=== PATIENT | female | born 1975 | race Caucasian/White ===

== ENCOUNTER 2023-12-18 07:45 | Inpatient (IN) | payer BC ==
[~2023-12-18] VITALS: Ht 162.6 cm; Wt 131.6 kg
[~2023-12-18 07:45] MED LIST: ALPR.5 PO; BCPs; FAMO20 PO; MAXIDE; PARO20 PO; PRED10 PO
[2023-12-18 08:30] LABS: BASOPHILS ABSOLUTE AUTO 0.07 K/mm3 (0.00-0.23); BASOPHILS PERCENT AUTO 1 % (0-2); EOSINOPHILS ABSOLUTE AUTO 0.14 K/mm3 (0.00-0.68); EOSINOPHILS PERCENT AUTO 1 % (0-6); Hematocrit 30.3 % (33.0-51.0); IMMATURE GRAN ABSOLUTE AUTO 0.07 K/mm3 (0.00-0.10); IMMATURE GRAN PERCENT AUTO 1 % (0-1); LYMPHOCYTES ABSOLUTE AUTO 1.14 K/mm3 (0.84-5.20); LYMPHOCYTES PERCENT AUTO 8 % (21-46); MONOCYTES ABSOLUTE AUTO 1.12 K/mm3 (0.16-1.47); MONOCYTES PERCENT AUTO 8 % (4-13); Mean Corpuscular HGB 29.7 pg (26.0-34.0); Mean Corpuscular Volume 90 fL (80-100); NEUTROPHILS ABSOLUTE AUTO 12.45 K/mm3 (1.96-9.15); NEUTROPHILS PERCENT AUTO 83 % (41-73); NRBC ABSOLUTE 0.02 K/mm3 (0.00-0.02); NRBC Auto 0.1 /100 WBC (0.0-0.2); Platelet Count 371 K/mm3 (150-400); RDW Coefficient Variation 13.7 % (11.7-14.2); Red Blood Cell Count 3.37 M/mm3 (3.80-5.20); White Blood Cell Count 14.99 K/mm3 (4.00-11.30)
[2023-12-18] MEDS ORDERED: CefTRIAXone Sodium 1,000 MG in NS 50 ML IV ONE (08:30)
[2023-12-18 08:49] LABS: Albumin, Blood 2.7 g/dL (3.4-5.0); Albumin/Globulin Ratio 0.6 (0.8-1.8); Bilirubin, Total 1.1 mg/dL (0.1-1.0); Bun/Creatinine Ratio 12.2 (12.0-20.0); Calcium, Blood 8.9 mg/dL (8.5-10.1); Creatinine, Blood 0.57 mg/dL (0.40-1.00); Globulin, Blood 4.7 g/dL (2.2-4.0); Potassium, Blood 3.1 mmol/L (3.5-5.5); Total Protein, Blood 7.4 g/dL (6.4-8.2)
[2023-12-18] MEDS ORDERED: NS 50 ML IV ONE (08:58)
[2023-12-18] MEDS ORDERED: CefTRIAXone 1000 MG Vial ONE (08:59)
[2023-12-18 09:31] LABS: Influenza A, PCR NEGATIVE (NEGATIVE); Influenza B, PCR NEGATIVE (NEGATIVE); Resp Syncytial Virus, PCR NEGATIVE (NEGATIVE); SARS-Cov-2 (COVID-19) PCR, MMC NEGATIVE (NEGATIVE)
[2023-12-18] MEDS ORDERED: Potassium Chloride 20 MEQ TabCR PO ONE (10:05)
[2023-12-18] MEDS ORDERED: Ondansetron HCl 2 MG / ML 2ML Vial IV PRN (10:30)
[2023-12-18] MEDS ORDERED: Acetaminophen 325 MG TABLET PO PRN (10:35)
[2023-12-18] MEDS ORDERED: NS 1,000 ML IV SCH ×2 (10:35)
[2023-12-18] MEDS ORDERED: Azithromycin 500 MG in NS 250 ML IV SCH (10:38)
[2023-12-18] MEDS ORDERED: Lisinopril 20 MG Tab PO SCH (12:00)
[2023-12-18] MEDS ORDERED: Metoprolol Tartrate 25 MG Tab PO SCH (12:00)
[2023-12-18] MEDS ORDERED: Furosemide 10 MG/ML 4ML Vial IV SCH (12:00)
[2023-12-18 12:10] VITALS: BP 157/93
[2023-12-18] MEDS ORDERED: LISINOPRIL-HCT1 EAC1 PO (12:15)
[2023-12-18] MEDS ORDERED: METFORMIN HCL500 M3 PO (12:16)
[2023-12-18] MEDS ORDERED: METO50ER PO (12:17)
[2023-12-18] MEDS ORDERED: MASOPHEN500 MG PO (12:19)
[2023-12-18] MEDS ORDERED: IBUP800 PO (12:19)
[2023-12-18] MEDS ORDERED: Ipratropium/Albuterol SulF 2.5-0.5MG/3 ML Amp INH PRN (12:55)
[2023-12-18] MEDS ORDERED: Metoprolol Succinate 50 MG TABCR PO SCH (12:55)
[2023-12-18 15:20] VITALS: BP 152/97
--- NOTE | 2023-12-18 16:08 | NUR ---
MAXIME RT SETTING UP ARIVO ON THE PT AT THIS TIME. THE PT CAN NOT SUSTAIN HER SATURATION >90%. ANY MOVEMENT, TALKING, OR COUGHING IS CAUSING THE PT'S SATURATION TO DROP IN THE 70'S-80'S ON 12L HFNC. SHE TAKES A LITTLE TO RECOVER. HER CURRENT AIRVO SETTINGS ARE 50L 64% SP02 93%.
[2023-12-18] MEDS ORDERED: Insulin Human Lispro 100 Units/ML 3ML Syringe SC SCH (16:30)
--- NOTE | 2023-12-18 17:29 | NUR ---
SHIFT SUMMARY PT WAS A NEW ADMIT TODAY THIS AFTERNOON. SHE ARRIVED TO PCU 13 ON 11 HFNC. SHE WAS SATURATING IN THE 70'S AFTER AMBULATING TO THE BATHROOM. PT TURNED UP TO 12L HFN W/ DEEP BREATHING COACHING. THE PT WAS ABLE TO RECOVER AFTER A FEW MINUTES. SHE WAS NOT ABLE TO SUSTAIN HER SP02 >90%. SHE WAS SWITCHED TO THE AIRVO 50L @ 63%. DR. SIGALA WAS CONSULTED. A CHEST CT WAS DONE. THE PT RESP HAVE BEEN 20'S-30'S. THE PT IS A&OX4, AND BED REST TO DUE FRAILITY OF LUNGS AND INCREASED OXYGEN DEMAND. SHE DID HAVE A HEADACHE TODAY AND WAS MEDICATED PER EMAR. THE PT HAS A PURWICK SET UP TO LIS. ON TELE SHE IS SR. BP HYPERTENSIVE, HOME BP MEDICATIONS RESTARTED. THE PT IS DIAPHERETIC BUT IS NOT RUNNING A FEVER AT THIS TIME. HER LIFE PARTNER WAS AT BEDSIDE AND WAS UPDATED ON CARE. SEE NOTES FOR UPDATES.
[2023-12-18 18:16] LABS: Adenovirus Not Detected (NOT DETECT); Coronavirus 229E Not Detected (NOT DETECT); Coronavirus HKU1 Not Detected (NOT DETECT); Coronavirus NL63 Not Detected (NOT DETECT); Coronavirus OC43 Not Detected (NOT DETECT); Human Metapneumovirus Not Detected (NOT DETECT); Human Rhinovirus/Enterovirus Not Detected (NOT DETECT); Influenza A/H1 Not Detected (NOT DETECT); SARS-Cov-2 (COVID-19), BioFire Not Detected (NOT DETECT)
[2023-12-18 18:17] LABS: Bordetella pertussis Not Detected (NOT DETECT); Chlamydophila pneumoniae Not Detected (NOT DETECT); Influenza A/2009-H1 Not Detected (NOT DETECT); Influenza A/H3 Not Detected (NOT DETECT); Influenza B Not Detected (NOT DETECT); Mycoplasma pneumoniae Not Detected (NOT DETECT); Parainfluenza Virus 1 Not Detected (NOT DETECT); Parainfluenza Virus 2 Not Detected (NOT DETECT); Parainfluenza Virus 3 Not Detected (NOT DETECT); Parainfluenza Virus 4 Not Detected (NOT DETECT); Respiratory Syncytial Virus Not Detected (NOT DETECT)
[2023-12-18 19:51] LABS: C-REACTIVE PROTEIN, EXT RANGE >19.000 mg/dL (0.000-0.300); Lactate Dehydrogenase (Ld),Bld 479 U/L (100-240)
[2023-12-18 20:26] VITALS: BP 174/96
[2023-12-18] MEDS ORDERED: Docusate Sodium 100 MG Cap PO SCH (21:00)
[2023-12-18] MEDS ORDERED: Doxycycline Hyclate 100 MG TAB PO SCH (21:00)
[2023-12-18] MEDS ORDERED: Lactobacil 2-S.Thermo-Bifido 1 1 Cap PO SCH (21:00)
[2023-12-18] MEDS ORDERED: Famotidine 20 MG Tab PO SCH (21:00)
[2023-12-18] MEDS ORDERED: GuaiFENesin 600 MG TabCR PO SCH (21:00)
[2023-12-18 22:21] LABS: Source, Urine Clean Catch
[2023-12-18 22:23] LABS: Blood, Urine 1+ (Neg); Glucose Qualitative, Urine Neg (Neg); Ketones, Urine 1+ (Neg); Leukocyte Esterase, Urine 1+ (Neg); Nitrite, Urine Neg (Neg); Protein, Urine 3+ (Neg); Specific Gravity, Urine 1.015 (1.003-1.022); Urobilinogen, Urine 4+ (Normal)
[2023-12-18 22:29] LABS: Appearance, Urine Hazy (Clear); Bilirubin, Urine 1+ (Neg); Color, Urine Yellow (P-Yellow)
[2023-12-18 22:30] LABS: Amorphous Mod (0-Heavy); Bacteria Few /hpf; Red Blood Cells, Urine 0-2 /hpf (0-2); Squamous Epithelial Cells Few /hpf (Few); White Blood Cells, Urine 0-2 /hpf (0-5)
[2023-12-19 00:09] VITALS: BP 151/71
[2023-12-19 03:54] LABS: BASOPHILS ABSOLUTE AUTO 0.09 K/mm3 (0.00-0.23); BASOPHILS PERCENT AUTO 1 % (0-2); EOSINOPHILS ABSOLUTE AUTO 0.36 K/mm3 (0.00-0.68); EOSINOPHILS PERCENT AUTO 2 % (0-6); Hemoglobin 9.4 g/dL (11.5-16.0); IMMATURE GRAN ABSOLUTE AUTO 0.06 K/mm3 (0.00-0.10); IMMATURE GRAN PERCENT AUTO 0 % (0-1); LYMPHOCYTES ABSOLUTE AUTO 1.25 K/mm3 (0.84-5.20); LYMPHOCYTES PERCENT AUTO 8 % (21-46); MONOCYTES ABSOLUTE AUTO 1.31 K/mm3 (0.16-1.47); MONOCYTES PERCENT AUTO 9 % (4-13); Mean Corpuscular HGB 29.3 pg (26.0-34.0); Mean Corpuscular HGB Conc 32.4 g/dL (31.5-36.5); Mean Corpuscular Volume 90 fL (80-100); Mean Platelet Volume 9.8 fL (9.1-12.4); NEUTROPHILS ABSOLUTE AUTO 11.76 K/mm3 (1.96-9.15); NEUTROPHILS PERCENT AUTO 79 % (41-73); NRBC ABSOLUTE 0.02 K/mm3 (0.00-0.02); NRBC Auto 0.1 /100 WBC (0.0-0.2); Platelet Count 395 K/mm3 (150-400); RDW Coefficient Variation 13.5 % (11.7-14.2); RDW Standard Deviation 45.3 fL (35.1-46.3); Red Blood Cell Count 3.21 M/mm3 (3.80-5.20); White Blood Cell Count 14.83 K/mm3 (4.00-11.30)
[2023-12-19 04:13] LABS: Albumin, Blood 2.4 g/dL (3.4-5.0); Albumin/Globulin Ratio 0.5 (0.8-1.8); Bun/Creatinine Ratio 16.6 (12.0-20.0); Calcium, Blood 8.8 mg/dL (8.5-10.1); Creatinine, Blood 0.6 mg/dL (0.40-1.00); Globulin, Blood 4.7 g/dL (2.2-4.0); Potassium, Blood 3.8 mmol/L (3.5-5.5); Total Protein, Blood 7.1 g/dL (6.4-8.2)
[2023-12-19 04:15] VITALS: BP 132/76
--- NOTE | 2023-12-19 05:46 | NUR ---
PT HAD A COUGHING EPISODE AND WAS UNABLE TO MAINTAIN O2 SATS, DESATED TO 79%. PT REPOSITIONED AND ENCOURAGED TO FOCUS ON BREATHING IN THROUGH NOSE OUT THROUGH MOUTH. SATS STILL REMAINED BETWEEN 83-84%. RESPIRATORY THERAPY CALLED. NON-REBREATHER PLACED AT 15L IN ADDITION TO THE HEATED HIGH FLOW NASAL CANNULA PER RESPIRATORY THERAPY INSTRUCTION. SATS DID IMPROVED BACK TO 88-90%. REASSESSMENT OF LUNG SOUNDS RLL HAS NEW FINE CRACKLES, LLL ESSENTIALLY UNCHANGED FROM CLEAR AND DIMINISHED. NO C/O OF CP. PT REMAINS AOX4.
--- NOTE | 2023-12-19 06:04 | NUR ---
DR. REYNOLDS CALLED AND INFORMED OF PT DESAT AND CURRENT INCREASED OXYGEN DEMAND.
--- NOTE | 2023-12-19 06:28 | NUR ---
PT HAS REQUIRED INCREASED O2 THROUGHOUT THE SHIFT. PT HAD A COUGHING EPISODE AND O2 DROPPED INTO THE 70S. PT HAS BEEN DESATING WITH ANY AND ALL EXERTION PRIOR TO THIS. CURRENTLY 50L 82% FIO2 WITH 15L NON REBREATHER MASK SUPPORT. PT IS NO SATING BETWEEN 90-92%. PHYSICIAN MADE AWARE OF DESAT AND INCREASED DEMAND. OTHER VITAL SIGNS HAVE REMAINED STABLE. PT REMAINS AOX4, NO C/O CHEST PAIN. NEW FINE CRACKLES NOTED ON RLL. WILL ATTEMPT TO REMOVE NON-REBREATHER WHEN O2 SATS STABILIZE.
[2023-12-19 07:37] VITALS: BP 147/77
[2023-12-19] MEDS ORDERED: Lactobacil 2-S.Thermo-Bifido 1 1 Cap PO SCH (08:00)
[2023-12-19] MEDS ORDERED: NS 100 ML IV ONE (08:09)
[2023-12-19] MEDS ORDERED: CefTRIAXone 1000 MG Vial ONE (08:09)
[2023-12-19] MEDS ORDERED: Lisinopril 20 MG Tab PO SCH (09:00)
[2023-12-19] MEDS ORDERED: Enoxaparin 40 MG/0.4 ML SYR SC SCH (09:00)
[2023-12-19] MEDS ORDERED: HydroCHLOROthiazide 25 mg Tab PO SCH (09:00)
[2023-12-19] MEDS ORDERED: PARoxetine HCl 20 MG Tab PO SCH (09:00)
[2023-12-19] MEDS ORDERED: CefTRIAXone Sodium 1,000 MG in NS 100 ML IV SCH (09:00)
--- NOTE | 2023-12-19 11:06 | NUR ---
AM NOTES; PT WAS ON AIRVO AT THE BEGINNING OF THE SHIFT SETTINGS 60L 83% FIO2 WIHT NON REBREATHER ON TOP 15L. PT DESATS WITH MINIMAL ACTIVITY TO LOW 80'S EVEN WITH BOTH O2 SUPPORT. PT WAS SWITCHED TO CPAP 12 70% FIO2, PT TOLRATING WELL AT THIS TIME. KEPT SATS ABOVE 90%, HRR REMAINED SR 70', SBP 140'S, AFEBRILE. PT TRIED TO EAT BREAKFAST THIS MORNING ABLY TO ONLY DRINK FLUIDS AND TAKE A BITE OF BANANA. PT HAS PUREWICK IN PLACE DRAINING DARK YELLOW URINE AND HAS SOME SEDIMENTS ON THE BOTTOM. PT RESTING AT THIS TIME PT REMAINED ALERT AND ORIENTED X4, ABLE TO MAKE NEEDS KNOWN WILL CONTINUE TO MONITOR
[2023-12-19 11:29] VITALS: BP 114/66
[2023-12-19 15:14] VITALS: BP 135/74
--- NOTE | 2023-12-19 17:47 | NUR ---
PT SUMMARY; PT REMAINS ON CPAP SETTINGS NOW ON 12 65% FIO2, PT SWITCHING TO AIRVO WITH SETTINGS 60L 83% FIO2 WITH MEALS, PT CONTINUES TO DESAT WITH EXERTION. DENTAL HYGIENIST ABLE TO SEE PT TODAY WITH DENTIST REFERRAL. PT REPORTED HEAD ACHE AND KNEE PAIN MEDICATED TWICE WITH TYLENOL FOR THE SHIFT THE REST OF THE VITALS ARE STABLE. PUREWICK IN PLACE. PT HAS BEEN CALLING APPROPRIATELY ABLE TO MAKE NEEDS KNOWN, WILL REPORT TO ONCOMING SHIFT
[2023-12-19 20:21] VITALS: BP 111/56
--- NOTE | 2023-12-19 22:07 | NUR ---
PT SLEEPING WITH CPAP ON HAVING INCREASED RESP RATE 44. RESPIRATIONS SHALLOW. O2 SATS 87% AND HOLDING. NO LEAK ON THE MACHINE NOTED. WOKE PT UP AND SATS DID IMPROVE TO 92%. CALLED RT TO SEE IF THERE WERE ANY SETTINGS WE COULD ADJUST FOR HER WHILE SHES SLEEPING AND WAS INFORMED NOTHING ELSE TO BE DONE AT THIS TIME. WILL CONTINUE TO MONITOR PT AND WAKE NECESSARY IN RESPONSE TO LOW O2 SATS.
[2023-12-20] VITALS (7 sets, daily range): BP systolic 120–144; BP diastolic 59–73
--- NOTE | 2023-12-20 01:02 | NUR ---
PT REMOVED FROM CPAP AND PLACED BACK ON AIRVO 50L 78% SATING AT 94%. PT REMOVED FOR ORAL MEDICATIONS. PT TOLERATING WELL. VS STABLE EXCEPT PT HAS TEMP 101.4. PT WAS MEDICATED FOR KNEE/BACK PAIN WITH TYLENOL.
--- NOTE | 2023-12-20 01:54 | NUR ---
PT BACK TO CPAP FROM AIRVO. PT PAIN AND TEMP IMPROVED AFTER MEDICATION. CPAP 14 CM H20 AND 70%. PT SATING 93% RR 36 AT THIS TIME. PT DENIES ANXIETY.
--- NOTE | 2023-12-20 02:43 | NUR ---
PT NOW ABLE TO REST AND IS SLEEPING ON CPAP. RR IS 26, SPO2 98%, HR 65.
--- NOTE | 2023-12-20 06:43 | NUR ---
PT BREATHING IMPROVED ON CPAP OVERNIGHT. PT WAS ABLE TO GET OOB TO BSC TO URINATE AND O2 SATS REMAINED STABLE AT 96%. PT WAS ABLE TO SLEEP ON CPAP WELL. PUREWICK REMOVED AND LINEN CHANGE DONE. PT DID HAVE AN ELEVATED TEMP AND THAT HAS IMPROVED. LUNG SOUNDS IMPROVED.
[2023-12-20] MEDS ORDERED: PredniSONE 20 MG Tab PO ONE (08:00)
--- NOTE | 2023-12-20 18:26 | NUR ---
SHIFT SUMMARY A&Ox4, CALLS AND COMMUNICATES NEEDS APPROPRIATELY. BP STABLE, SINUS 80'S, DENIES CP/PRESSURE. SpO2 90% 40L 45% FiO2 VIA AIRVO, REPORTS INTERMITTENT SOB. 1 ASSIST TO BSC, CONTINENT OF URINE, NO BM THIS SHIFT. NO C/O PAIN. NO OTHER EVENTS, WILL REPORT TO ONCOMING RN.
[2023-12-20 22:18] LABS: ANTI-NUCLEAR AB ANA,IGG ELISA None Detected (None Detected)
[2023-12-20 22:28] LABS: CYCLIC CITRULLINATED PEP,IGG/A 3 Units (0-19)
--- NOTE | 2023-12-20 22:33 | NUR ---
PT MEDICATED FOR HEADACHE, SEE MAR.
[2023-12-21 04:02] LABS: SCLERODERMA (SCL-70) AB,IGG 0 AU/mL (0-40); SSA-52 (RO52) (ENA) AB, IGG 2 AU/mL (0-40); SSA-60 (RO60) (ENA) AB, IGG 0 AU/mL (0-40); SSB (LA) (ENA) ANTIBODY, IGG 0 AU/mL (0-40)
[2023-12-21 04:14] VITALS: BP 124/65
[2023-12-21 04:33] LABS: BASOPHILS ABSOLUTE AUTO 0.06 K/mm3 (0.00-0.23); BASOPHILS PERCENT AUTO 0 % (0-2); EOSINOPHILS ABSOLUTE AUTO 0.12 K/mm3 (0.00-0.68); EOSINOPHILS PERCENT AUTO 1 % (0-6); Hematocrit 29.8 % (33.0-51.0); Hemoglobin 9.6 g/dL (11.5-16.0); IMMATURE GRAN ABSOLUTE AUTO 0.08 K/mm3 (0.00-0.10); IMMATURE GRAN PERCENT AUTO 1 % (0-1); LYMPHOCYTES ABSOLUTE AUTO 2.72 K/mm3 (0.84-5.20); LYMPHOCYTES PERCENT AUTO 18 % (21-46); MONOCYTES PERCENT AUTO 9 % (4-13); Mean Corpuscular HGB 28.8 pg (26.0-34.0); Mean Corpuscular HGB Conc 32.2 g/dL (31.5-36.5); Mean Corpuscular Volume 90 fL (80-100); Mean Platelet Volume 9.7 fL (9.1-12.4); NEUTROPHILS PERCENT AUTO 71 % (41-73); Platelet Count 512 K/mm3 (150-400); RDW Coefficient Variation 13.3 % (11.7-14.2); RDW Standard Deviation 43.7 fL (35.1-46.3); Red Blood Cell Count 3.33 M/mm3 (3.80-5.20); White Blood Cell Count 14.88 K/mm3 (4.00-11.30)
[2023-12-21 05:08] LABS: Bun/Creatinine Ratio 27.5 (12.0-20.0); Calcium, Blood 9.5 mg/dL (8.5-10.1); Creatinine, Blood 0.69 mg/dL (0.40-1.00); Potassium, Blood 3.7 mmol/L (3.5-5.5)
--- NOTE | 2023-12-21 06:50 | NUR ---
PT REMAINED STABLE THOUGHOUT THE SHIFT BUT DID DESAT ON THE AIRVO TO 84% WHILE SLEEPING AND WAS PLACED ON CPAP WITH IMMEDIATE IMPROVEMENT OF SPO2 TO 99-100%. PT WAS ABLE TO SLEEP FOR 3.5HRS ON CPAP. PT DID HAVE A LARGE BM. NO SPUTUM SAMPLE COLLECTED FOR PENDING TEST PT WAS UNABLE TO PRODUCE AND DID NOT HAVE ANY PROLONGED EPISODES OF COUGHING. PT IS MAINTAINING O2 SATS BETTER ON AIRVO WITH MOVEMENT/TALKING/EATING/DRINKING WITH SATS BETWEEN 93-96%.
[2023-12-21 07:53] VITALS: BP 122/55
--- NOTE | 2023-12-21 10:30 | NUR ---
DR. RAINEY AT THE BEDSIDE AND NOTIFIED OF PROLONGED QTC OF 0.50 AFTER CONSULTING WITH PHARMACY, IT WAS DETERMINED THAT THE AZITHROMYCIN AND IMMODIUM CAN CAUSE PROLONGED QTC. DR. RAINEY D/C'D THE TWO MEDICATIONS AND STATED HE WILL START HER ON A DIFFERENT ANTIBIOTIC AT DISCHARGE. PLAN FOR DISCHARGE TODAY.
[2023-12-21] MEDS ORDERED: PredniSONE 20 MG Tab PO SCH (11:00)
[2023-12-21 11:19] VITALS: BP 123/108
[2023-12-21 12:48] LABS: GBM, IGG MULTIPLEX BEAD ASSAY 0 AU/mL (0-19)
[2023-12-21 12:49] LABS: MYELOPEROXIDASE (MPO) AB,IGG 1 AU/mL (0-19); SERINE PROTEINASE 3 PR3 AB,IGG 0 AU/mL (0-19)
--- NOTE | 2023-12-21 13:14 | NUR ---
AMBULATION AND OXYGEN TRIAL. I AMBULATED THE PT TO THE BATHROOM ON 2L NC. AFTER ABOUT THREE MINUTES THE PT DESATURATED TO A LOW OF 70%. THE PT REPORTING DIZZINESS AT THIS TIME. I TURNED HER OXYGEN UP TO 4L NC AND AFTER SHE RECOVERED SHE FELT LIKE WALKING. I ASSISTED THE PT WITH AMBULATING TO THE NURSES STATION AND BACK ON 4L NC AND THE LOWEST HER SP02 DROPPED WAS 89%. SHE DID STOP ABOUT HALF WAY BECAUSE SHE FELT "WEAK" BUT SHE DENIES SOB OR FEELING LIGHT HEADED. THE INFORMATION WAS RELAYED TO MAXIME HARDEN. SEE NOTES FOR UPDATES.
[2023-12-21 15:25] VITALS: BP 105/58
--- NOTE | 2023-12-21 17:08 | NUR ---
SHIFT SUMMARY THE PT IS A&OX4, CALLS APPROPRIATELY, AND MAKES HER NEEDS KNOWN. SHE WAS TITRAITED DOWN ON HER OXYGEN WHILE AWAKE. AT THIS TIME THE PT NEEDS 2L NC AT REST AND 4LNC WITH ACTIVITY ANDAMBULATION. SEE PREVIOUS NOTE FOR MORE DETAILS. ON TELE THE PT IS SB/SR 50'S-60'S. BP SOFT BUT STABLE. SHE DENIES ANY ANGINA, PAIN, HEADACHE, AND DIZZINESS AT THIS TIME. FAMILY WAS AT THE BEDSIDE AND UPDATED ON CARE. SEE NOTES FOR ANY UPDATES.
[2023-12-21 20:13] VITALS: BP 129/57
--- NOTE | 2023-12-21 21:05 | NUR ---
VSS. DENIES CHEST PAIN. ALERT AND ORIENTED X 4. AGREES TO USE CALL LIGHT IF NEED OOB. CALL LIGHT IN REACH. O2 AT 2L/MIN PER NC. IF OOB 4L/NC
[2023-12-22 00:24] VITALS: BP 145/60
--- NOTE | 2023-12-22 02:13 | NUR ---
O2 SATS DROPPING INTO THE LOW 80'S. PT ASYMPTOMATIC. O2 INCREASED TO 4L/MIN PER NC. ENCOURAGED TO TAKE DEEP BREATHS. CALL [facility] IN REACH.
--- NOTE | 2023-12-22 03:19 | NUR ---
UTILITY OPERATOR SUMMARY VSS. RECEIVING PO ANTIBITICS FOR SEPSIS- SEE MAR. ON O2 AT 2L/MIN PER NC WHEN IN BED AND 4L/MIN WHEN UP AND ABOUT - TO BR, ETC. HOLDING OFF OF CPAP FOR AIR EVAL IN THE AM. HAS BEEN RESTING AT INTERVALS, WHEN UP TO BATHROOM EARLIER, SEEMED OK, BUT WHEN BACK TO BED, DROPPED IN O2 SATS AND O2 WAS INCREASED TO 4L/MIN. EFFECTIVE, O2 SATS IN THE 90'S. HR TRENDING IN THE HIGH 50'S AND LOW 60'S. DENIED CHEST PAIN THROUGHOUT SHIFT. UP WITH OBSERVATION FOR SAFETY TO PREVENT FALLS. ABLE TO REPOSITION SELF IN BED WITHOUT ASSIST, BED IN LOW POSITION, RAILS UP X 2 AND CALL LIGHT IN REACH FOR SAFETY. WILL CONT TO MONITOR.
[2023-12-22 04:03] VITALS: BP 137/67
[2023-12-22 04:09] LABS: Base Excess Venous 3.2 mmol/L; PCO2 Venous 38.8 mmHg (38-42); pH Blood Venous 7.45 (7.34-7.37)
[2023-12-22 08:33] VITALS: BP 133/83
[2023-12-22 09:26] LABS: Percent Saturation 11.1 % (15.0-50.0)
--- NOTE | 2023-12-22 09:50 | NUR ---
PT TITRATED TO RA AT ROUGHLY 0835. SATS STABLE IN THE 90'S WHILE AT REST. PT UP IN ROOM TO AMBULATE TO HER PERSONAL BELONGINGS ONTOP OF HER ROOM END TABLE. SATS DOWN TO 87% BUT PELTH WAS NOT GOOD. PT STOPPED AND TOOD IN DEEP BREATHS, SATS RETURNED TO LOW 90'S. PT REPORTED SLIGHT SOB AT THIS TIME. PT BACK TO RECLINER AND RESTING, SATS STABLE IN MID 90S ON RA.
[2023-12-22 11:57] VITALS: BP 148/95
[2023-12-22 16:51] VITALS: BP 151/78
--- NOTE | 2023-12-22 17:49 | NUR ---
SHIFT SUMMARY PT A/OX4 AND COOPERATIVE OF CARE. PT ABLE TO EXPRESS NEEDS AND CALLS APPROPIATE.PT INDEPENDENT IN ROOM. PT VSS THROUGHOUT SHIFT. PT TITRATED FROM 2L NC TO RA THIS MORNING, SATS REMAINED STABLE. PT AMBULATED AROUND ROOM AND PCU MULTIPLE TIMESDURING SHIFT, SATS WOULD BE DOWN TO 88% AT TIMES BUT WOULD RETUNR TO 90'S QUICKLY. OVERNIGHT O2 EVAL ORDERED. NO REPORT OF CHEST PAIN/PRESSURE THROUGHOUT SHIFT. PT DID REPORT MILD SOB WHEN AMBULATING.
[2023-12-22 19:46] VITALS: BP 159/85
[2023-12-23 03:52] VITALS: BP 150/79
--- NOTE | 2023-12-23 05:45 | NUR ---
SHIFT SUMMARY PT A&O X4, ABLE TO MAKE NEEDS KNOWN. VSS, AFEBRILE. SPO2 >93% RA. OVERNIGHT SLEEP OXIMETRY COMPLETED THIS SHIFT. PT AMBULATES IN ROOM INDEPENDENTLY. SHE DENIES CP OR PRESSURE AND ONLY REPORTS MILD SOB WITH EXERTION. SHE IS RESTING QUIETLY IN BED, CALL LIGHT WITHIN REACH, BREATHING EVEN AND UNLABORED.
[2023-12-23 08:10] VITALS: BP 135/73
[2023-12-23] MEDS ORDERED: Potassium Chloride 20 MEQ TabCR PO SCH (09:00)
[2023-12-23] MEDS ORDERED: Ferrous Sulfate 325 MG Tab PO SCH (09:00)
[2023-12-23] MEDS ORDERED: Furosemide 40 MG Tab PO SCH (09:00)
[2023-12-23] MEDS ORDERED: FERSU300 PO (10:33)
[2023-12-23] MEDS ORDERED: DOXY100 PO (10:33)
[2023-12-23] MEDS ORDERED: POTCHL20ER PO (10:34)
[2023-12-23] MEDS ORDERED: FURO40 PO (10:34)
[2023-12-23] MEDS ORDERED: LISI20 PO (10:34)
[2023-12-23] MEDS ORDERED: PRED20 PO (10:36)
[2023-12-23] MEDS ORDERED: VISBIOME 112.51 EACH PO (10:37)
[2023-12-23] MEDS ORDERED: ALBU90OI INH (10:59)
--- NOTE | 2023-12-23 13:55 | NUR ---
Discharge Summary Pt was discharged at 1130, prescriptions faxed to [facility] pharmacy. Discharge instructions given verbally and in print. Pt walked to the exit and waited outside for her partner to pick her up via automobile.
== END 2023-12-23 11:56 | disposition home or self-care (01) | DRG 193 ==
LOC: ER 07:45 → PCU 10:23
PROVIDERS: Emergency Medicine; Internal Medicine; Internal Medicine Critical Care Medicine; ADMIT Internal Medicine
PROC: 5A0935A Assistance with Respiratory Ventilation, Less than 24 Consecutive Hours, High Flow/Velocity Cannula (ICD-10-PCS; 2023-12-18)
PROC: 5A09357 Assistance with Respiratory Ventilation, Less than 24 Consecutive Hours, Continuous Positive Airway Pressure (ICD-10-PCS; principal; 2023-12-19)
DX: J18.9 Pneumonia, unspecified organism (principal); I50.31 Acute diastolic (congestive) heart failure; J96.01 Acute respiratory failure with hypoxia; J44.1 Chronic obstructive pulmonary disease with (acute) exacerbation; Z68.42 Body mass index [BMI] 45.0-49.9, adult; G47.33 Obstructive sleep apnea (adult) (pediatric); E66.01 Morbid (severe) obesity due to excess calories; E11.9 Type 2 diabetes mellitus without complications; F41.9 Anxiety disorder, unspecified; D50.9 Iron deficiency anemia, unspecified; Z98.890 Other specified postprocedural states; Z79.84 Long term (current) use of oral hypoglycemic drugs; Z79.811 Long term (current) use of aromatase inhibitors; Z79.02 Long term (current) use of antithrombotics/antiplatelets; Z79.899 Other long term (current) drug therapy; I11.0 Hypertensive heart disease with heart failure; Z99.81 Dependence on supplemental oxygen
CPT/HCPCS: 0202U; 0241U; 36415; 71045; 71250; 80048; 80053; 81001; 82728; 82803; 82947; 83516; 83540; 83550; 83605; 83615; 83880; 84145; 84484; 85025; 85651; 86038; 86140; 86200; 86235; 86430; 87040; 87070; 87205; 87449; 93005; 93010; 93306; 94640; 94660; 94664; 94760; 94761; 94762; 96365; 99285-25; A9270; J0696; J1650; J1940; J7512

== ENCOUNTER → 2024-07-31 | Outpatient (CLI) | payer OTHER ==
[~2024-07-31] MED LIST changes: +ACET500 PO; +ALBU90OI INH; +DOXY100 PO; +FERSU300 PO; +FURO40 PO; +IBUP800 PO; +LISI20 PO; +LISINOPRIL-HCT1 EAC1 PO; +MASOPHEN500 MG PO; +METFORMIN ER G500 MG PO; +METFORMIN HCL500 M3 PO; +METO50ER PO; +OXAYDO5 M1 PO; +POTCHL20ER PO; +PRED20 PO; +SIME80CH PO; +VISBIOME 112.51 EACH PO
[2024-07-31 15:42] LABS: Source, Urine Clean Catch
[2024-07-31 17:24] LABS: Appearance, Urine Clear (Clear); Bilirubin, Urine Neg (Neg); Blood, Urine Neg (Neg); Color, Urine Yellow (P-Yellow); Glucose Qualitative, Urine Neg (Neg); Ketones, Urine Neg (Neg); Leukocyte Esterase, Urine 1+ (Neg); Nitrite, Urine Neg (Neg); Protein, Urine 1+ (Neg); Specific Gravity, Urine 1.015 (1.003-1.022); Urobilinogen, Urine NORM (Normal)
[2024-07-31 17:35] LABS: Bacteria Mod /hpf; Red Blood Cells, Urine 0-2 /hpf (0-2); Squamous Epithelial Cells Few /hpf (Few)
[2024-07-31 19:05] LABS: BASOPHILS PERCENT AUTO 1 % (0-2); EOSINOPHILS ABSOLUTE AUTO 0.14 K/mm3 (0.00-0.68); EOSINOPHILS PERCENT AUTO 1 % (0-6); Hematocrit 36.1 % (33.0-51.0); Hemoglobin 11.6 g/dL (11.5-16.0); IMMATURE GRAN ABSOLUTE AUTO 0.04 K/mm3 (0.00-0.10); IMMATURE GRAN PERCENT AUTO 0 % (0-1); LYMPHOCYTES ABSOLUTE AUTO 2.81 K/mm3 (0.84-5.20); LYMPHOCYTES PERCENT AUTO 26 % (21-46); MONOCYTES ABSOLUTE AUTO 1.08 K/mm3 (0.16-1.47); MONOCYTES PERCENT AUTO 10 % (4-13); Mean Corpuscular HGB 30.8 pg (26.0-34.0); Mean Corpuscular HGB Conc 32.1 g/dL (31.5-36.5); Mean Corpuscular Volume 96 fL (80-100); Mean Platelet Volume 10.9 fL (9.1-12.4); NEUTROPHILS ABSOLUTE AUTO 6.64 K/mm3 (1.96-9.15); NEUTROPHILS PERCENT AUTO 61 % (41-73); Platelet Count 217 K/mm3 (150-400); RDW Coefficient Variation 13.2 % (11.7-14.2); Red Blood Cell Count 3.77 M/mm3 (3.80-5.20); White Blood Cell Count 10.81 K/mm3 (4.00-11.30)
[2024-08-10 11:56] LABS: HPV HIGH RISK BY TMA Not Detected; HPV SOURCE Cervical
== END ==
LOC: LAB 15:28 → LAB SHORT 15:28
PROVIDERS: Obstetrics & Gynecology
DX: Z01.818 Encounter for other preprocedural examination (principal)
CPT/HCPCS: 36415; 81001; 85025; 86850; 86900; 86901; 87086; 87624; G0123

== ENCOUNTER 2024-08-13 08:25 | Day surgery (SDC) | payer OTHER ==
[2024-08-13] VITALS (13 sets, daily range): BP systolic 104–155; BP diastolic 52–90
[~2024-08-13] VITALS: Ht 164 cm; Wt 135.4 kg
[~2024-08-13 08:25] MED LIST changes: -ACET500 PO; +CeFAZolin Sodium 3,000 MG in NS 100 ML IV SCH; +Lactated Ringer's 1,000 ML IV SCH; -OXAYDO5 M1 PO; -SIME80CH PO
[2024-08-13] MEDS ORDERED: Ondansetron HCl 2 MG / ML 2ML Vial ONE (08:33)
[2024-08-13] MEDS ORDERED: Rocuronium Bromide 10 MG/ML 5ML Injection IV ONE ×3 (08:33→10:06)
[2024-08-13] MEDS ORDERED: Ketorolac Tromethamine 30mg Vial ONE (08:33)
[2024-08-13] MEDS ORDERED: Bupivacaine 0.5% HCl 5 MG/ML 30MLVIAL ONE (08:33)
[2024-08-13] MEDS ORDERED: FentaNYL Citrate 50 MCG/ML 2 ML Injection ONE (08:33)
[2024-08-13] MEDS ORDERED: Dexamethasone Sod Phos 10 MG/ML 1ML VIAL ONE (08:33)
[2024-08-13] MEDS ORDERED: propofoL 20 ML IV ONE (08:33)
[2024-08-13] MEDS ORDERED: Sugammadex Sodium 200 MG/2ML SDV (100 MG/ML) ONE (08:33)
[2024-08-13] MEDS ORDERED: Scopolamine Hydrobromide Patch TOP SCH (08:45)
[2024-08-13] MEDS ORDERED: FentaNYL Citrate 50 MCG/ML 2 ML Injection IV PRN ×4 (08:45→12:20)
[2024-08-13] MEDS ORDERED: Ondansetron HCl 2 MG / ML 2ML Vial IV PRN ×2 (08:45→12:20)
[2024-08-13] MEDS ORDERED: Midazolam HCl 1MG / ML 2ML Vial IV PRN (08:45)
[2024-08-13] MEDS ORDERED: Lidocaine HCl 1% 5 ML SYR INJ ONE (08:50)
[2024-08-13] MEDS ORDERED: Metoclopramide HCl 5MG / ML 2ML Vial IV PRN (08:50)
[2024-08-13] MEDS ORDERED: Droperidol 5 mg/2 ml Vial IV PRN (08:50)
[2024-08-13] MEDS ORDERED: HYDROmorphone HCl/Pf 1MG SYR IV PRN (08:50)
--- NOTE | 2024-08-13 08:59 | NUR ---
History, Chart, Medications and Allergies reviewed before start of procedure. Pre-Op teaching done. Pt verbalizes understanding. Patient States Post-Procedure ride home has been arranged.
[2024-08-13] MEDS ORDERED: Dexmedetomidine HCL 200 MCG / 2 ML ONE (09:00)
[2024-08-13] MEDS ORDERED: Phenylephrine HCl 100 MCG/ML-NS 10MLSYR (1MG/10ML) ONE (09:41)
[2024-08-13] MEDS ORDERED: ePHEDrine Sulfate 50 MG/ML 1ML Injection ONE (09:41)
[2024-08-13] MEDS ORDERED: HYDROmorphone HCl/Pf 1MG SYR ONE (10:26)
[2024-08-13] MEDS ORDERED: DiphenhydrAMINE HCL 25 MG Cap PO PRN (12:20)
[2024-08-13] MEDS ORDERED: OxyCODONE HCL 5 MG TAB PO PRN ×2 (12:20→12:25)
[2024-08-13] MEDS ORDERED: Ketorolac Tromethamine 30mg Vial IV PRN (12:20)
[2024-08-13] MEDS ORDERED: Ibuprofen 400 MG Tab PO PRN (12:20)
[2024-08-13] MEDS ORDERED: Acetaminophen 500 MG Tab PO PRN (12:25)
[2024-08-13] MEDS ORDERED: Metoclopramide HCl 10 MG Tab PO PRN (12:25)
[2024-08-13] MEDS ORDERED: Simethicone 80 MG Chew PO PRN (12:25)
--- NOTE | 2024-08-13 12:51 | NUR ---
ARRIVAL TO UNIT AFTER RECEIVING REPORT FROM TARIFF COMPILING CLERK, PATIENT TRANSFERRED [facility] AT APPROX 1230. PATIENT ALERT AND ORIENTED X4. ABLE TO STAND AND TRANSFER FROM [facility] TO RESTROOM WITH SBA. X1 SMALL UNMEASURABLE VOID. S/P LAP HYSTER. VSS. ON ROOM AIR WHILE AWAKE - SATs >90%. LUNG SOUNDS CLEAR. DENIES SOB. X4 LAP SITES C/D/I WITH WOUND GLUE. MINIMAL VAGINAL BLEEDING ON JOSE PAD. DENIES N/V - SMALL SNACKS WITHIN REACH. IVF INFUSING TO GRAVITY. DENIES PAIN AT THIS TIME. CALL LIGHT IN REACH. SPOUSE AT BEDSIDE.
[2024-08-13] MEDS ORDERED: ACET500 PO (15:53)
[2024-08-13] MEDS ORDERED: OXAYDO5 M1 PO (15:54)
[2024-08-13] MEDS ORDERED: SIME80CH PO (15:54)
--- NOTE | 2024-08-13 16:14 | NUR ---
DISCHARGE NOTE NO ACUTE CHANGES SINCE ARRIVAL TO UNIT. S/P LAP HYSTER. VSS. REMAINS ON ROOM AIR, SATs >90%. RR EVEN, UNLABORED. X4 LAP SITES C/D/I. PAIN MANAGED WITH PRESCRIBED THERAPY. TOLERATING PO INTAKE. VOIDING. AMBULATING IN ROOM AND HALLWAY WITH SBA. PATIENT EAGER TO DC HOME - MD [place] CONTACTED. DC ORDER IN PLACE. IV REMOVED. WRITTEN AND VERBAL EDUCATION PROVIDED - PATIENT STATES UNDERSTANDING. PERSONAL BELONGINGS WITH PATIENT.
== END 2024-08-13 16:30 | disposition home or self-care (01) ==
LOC: ORSCMMR 08:25 → ORD 10:00 → SURS 12:25 → ORSCMMR 16:30
PROVIDERS: Obstetrics & Gynecology
PROC: 0UT7FZZ Resection of Bilateral Fallopian Tubes, Via Natural or Artificial Opening With Percutaneous Endoscopic Assistance (ICD-10-PCS; principal; 2024-08-13 10:00)
PROC: 0UT9FZZ Resection of Uterus, Via Natural or Artificial Opening With Percutaneous Endoscopic Assistance (ICD-10-PCS; principal; 2024-08-13 10:00)
DX: N93.9 Abnormal uterine and vaginal bleeding, unspecified (principal); N80.03 Adenomyosis of the uterus; D28.2 Benign neoplasm of uterine tubes and ligaments; N83.8 Other noninflammatory disorders of ovary, fallopian tube and broad ligament; I10 Essential (primary) hypertension; J45.909 Unspecified asthma, uncomplicated; R73.03 Prediabetes; G47.33 Obstructive sleep apnea (adult) (pediatric); E66.01 Morbid (severe) obesity due to excess calories; Z68.43 Body mass index [BMI] 50.0-59.9, adult; F41.9 Anxiety disorder, unspecified; F32.A Depression, unspecified; Z79.899 Other long term (current) drug therapy
CPT/HCPCS: 82947; 86850; 86900; 86901; 88307; A9270; J0690; J1100; J1171; J1885; J2250; J2371; J2405; J2704; J3010; J7120